=== PATIENT | male | born 1995 | race Caucasian/White ===

== ENCOUNTER → 2021-03-26 12:44 | Outpatient (CLI) | payer BC, SELFPAY ==
--- NOTE | ~2021-03-26 | US_ITS ---
EXAMINATION: US scrotum doppler EXAM DATE: 03/26/2021 13:22 INDICATION: Lump in right testicle. Intermittent testicular pain for few days. TECHNIQUE: Multiple grayscale and Doppler images of the testicles and scrotum were obtained bilateral ly. There is no prior study for comparison. 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 Right testicle measures 5.4 x 2.6 x 3.3 cm, with 2 contiguous masses measuring up to 1.7 and 1.5 cm. One of these has some cystic components. There is another 6 mm mass along the periphery which is not contiguous to these 2 masses. 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 Low resistance Doppler flow confirmed. The epididymis is unremarkable. T here is no hydrocele or varicocele. Left testicle measures 5.4 x 2.7 x 2.9 cm and is morphologically normal. Low resistance Doppler flow confirmed. The epididymis is unremarkable. There is no hydrocele or varicocele. IMPRESSION: Several right testicular masses; recommend CT abdomen pelvis with contrast, consult. I spoke with Tiffanie in Dr. Wilmar Muro MD's office on 03/26/2021 16:05 CDT. I provided my direct num francine, requested call back to discuss findings in this case. Reviewed, dictated and finalized at location B. IMPRESSION: Several right testicular masses; recommend CT abdomen pelvis with c ontrast, consult. I spoke with Tiffanie in Dr. Wilmar Muro MD's office on 03/26/2021 16:05 CDT. I provided my direct number, requested call back to discuss findings in this case .
== END ==
PROVIDERS: PCP Family Medicine; Visit Provider Family Medicine
DX: N50.9 Disorder of male genital organs, unspecified (principal)
CPT/HCPCS: 76870; 93976

== ENCOUNTER → 2021-09-29 10:12 | Outpatient (CLI) | payer BC, SELFPAY ==
[2021-09-29 21:02] LABS: SARS-CoV-2 RNA PCR Negative
== END ==
PROVIDERS: PCP Family Medicine; Visit Provider Family Medicine
DX: R05.9 Cough, unspecified (principal); J02.9 Acute pharyngitis, unspecified; Z20.822 Contact with and (suspected) exposure to COVID-19
CPT/HCPCS: C9803; U0003; U0005

== ENCOUNTER → 2023-08-30 13:43 | Outpatient (CLI) | payer BC, SELFPAY ==
--- NOTE | ~2023-08-30 | XR_ITS ---
EXAM: XR abdomen obstructive series DATE: 08/30/2023 13:58 HISTORY: R14.0 - Abdominal distension (gaseous) . COMPARISON: None available. FINDINGS: Clear lung bases. Multiple dilated loops of proximal and mid small bowel. Gas is present w ithin the decompressed most distal portion of small bowel and within the colon. Multiple air-fluid le vels. No free air. Flank stripes are preserved. No organomegaly. No abnormal abdominal calcification. Regional bones and soft tissues normal for age. IMPRESSION: Findings concerning for partial mid/distal small bowel obstruction/ileus. Early complete obstruction not excluded. Recommend CT of the abdomen and pelvis with contrast for further evaluation . Results reported telephonically to Dr. Muro by Dr. Rice at 5:58 PM on 08/30/2023. Reviewed, dictated and finalized at location K. E WORKER IMPRESSION: Findings concerning for partial mid/distal small bowel obstruction/ ileus. Early complete obstruction not excluded. Recommend CT of the abdomen and pelvis with contrast for further evaluation. Results reported telephonically to Dr. Muro by Dr. Rice at 5:58 PM on 08/19.
== END ==
PROVIDERS: PCP Family Medicine; Visit Provider Family Medicine
DX: R14.0 Abdominal distension (gaseous) (principal)
CPT/HCPCS: 74019

== ENCOUNTER 2023-09-13 09:38 | Outpatient (CLI) | payer BC, SELFPAY ==
--- NOTE | ~2023-09-13 | CT_ITS ---
EXAMINATION: CT abdomen pelvis w con DATE: 09/13/2023 10:25 INDICATION: Unspecified intestinal obstruction. TECHNIQUE: Computed tomography (CT) of the abdomen and pelvis was performed with 100 mL Omnipaque 350 intravenous contrast. Automated exposure control and iterative reconstruction technique were employe d. The dose-length product was 1006.34 mGy-cm. COMPARISON: Abdomen radiographs 08/30/2023 FINDINGS: The visualized portions of the lung bases demonstrate mild atelectasis. No pleural effusion . The heart size is normal. No pericardial effusion. There is diffuse hepatic steatosis. The liver, s pleen, pancreas, adrenal glands, and kidneys are normal. The appendix is normal. There are no dilated loops of bowel. There is wall thickening of many loops of small bowel. There is no significant steno sis of celiac axis, superior mesenteric artery, or inferior mesenteric artery. There are no pathologi john enlarged lymph nodes. There is no free intraperitoneal fluid. There is mild thoracic and lumbar spondylosis. IMPRESSION: 1. Small bowel wall thickening, consistent with enteritis. 2. Diffuse hepatic steatosis. Reviewed, dictated and finalized at location E. CTION MOLD TECHNICIAN
== END 2023-09-13 09:39 | disposition home or self-care (01) ==
PROVIDERS: PCP Family Medicine; Visit Provider Family Medicine
DX: K56.609 Unspecified intestinal obstruction, unspecified as to partial versus complete obstruction (principal); K76.0 Fatty (change of) liver, not elsewhere classified
CPT/HCPCS: 74177; Q9967